=== PATIENT | male | born 1990 | race Hispanic/Latino ===

== ENCOUNTER 2017-04-21 10:25 | Day surgery (SDC) | payer OTHER ==
[2017-04-20 10:55] VITALS: BMI 35.9
[2017-04-21] MEDS ORDERED: Oxymetazoline HCl 0.05% ( 15 ML ) ONE ×2 (10:42→12:31)
[2017-04-21] MEDS ORDERED: Ondansetron HCl/PF 4 MG/2 ML Vial ONE ×3 (12:25→14:25)
[2017-04-21] MEDS ORDERED: Fentanyl 250 MCG/5 ML VIAL ONE ×2 (12:25→13:21)
[2017-04-21] MEDS ORDERED: Lidocaine 1% w/Epinephrine 1:200K 30 ML VIAL ONE (12:31)
[2017-04-21] MEDS ORDERED: Bacitracin Zinc Ointment 30 gm TUBE ONE (12:31)
[2017-04-21] MEDS ORDERED: Succinylcholine Chloride 20 MG/ML 10 ml SYRINGE FS ONE (14:25)
[2017-04-21] MEDS ORDERED: Dexamethasone 20 MG/5 ML VIAL ONE (14:25)
[2017-04-21] MEDS ORDERED: PROPOFOL 200 MG/20 ML VIAL ONE (14:25)
[2017-04-21] MEDS ORDERED: Lidocaine 1% PF 5 ML VIAL ONE (14:25)
[2017-04-21] MEDS ORDERED: Morphine 2 MG/ML SYRINGE ONE (14:48)
[2017-04-21] MEDS ORDERED: Hydrocodone-Acetamin 15 ML UDCUP ONE (14:53)
--- NOTE | 2017-04-21 19:07 | OP ---
DATE OF PROCEDURE: 04/21/2017 PREOPERATIVE DIAGNOSES: 1. Chronic adenotonsillitis. 2. Adenotonsillar hypertrophy. 3. Nasal septal deviation. 4. Bilateral inferior turbinate hypertrophy. 5. Nasal obstruction. POSTOPERATIVE DIAGNOSES: 1. Chronic adenotonsillitis. 2. Adenotonsillar hypertrophy. 3. Nasal septal deviation. 4. Bilateral inferior turbinate hypertrophy. 5. Nasal obstruction. PROCEDURES: 1. Nasal septoplasty. 2. Bilateral inferior turbinate submucous resection. 3. Tonsillectomy and adenoidectomy. SURGEON: Matheus Alexander M.D. ESTIMATED BLOOD LOSS: 20 mL. COMPLICATIONS: None. ANESTHESIA: GETA. PROCEDURE IN DETAIL: Patient was taken to the operating room and placed supine on the table. Genera l endotracheal anesthesia was obtained by the Anesthesia staff. Tube was secured in the left lower l ip. Patient was then placed in the beach chair position, and Afrin pledgets were placed in the nasal cavity. Injections of 1% lidocaine with 1:100,000 epinephrine were made into the nasal septum as we ll as the inferior turbinates. Patient was then prepped and draped in standard surgical fashion for nasal surgery. Following this, the Afrin pledgets were removed. A Sipsey incision was made on the left nasal septum. Submucoperichondrial dissection was performed. The deviated portions of the sept um included portions of the cartilage and the bony septum. These isolated areas were removed using t hree cutting rongeurs. There was noted to be a large dorsal and caudal strut, left intact for suppor t of the nose. The mucoperichondrial flaps were then reapproximated using a 4-0 gut stitch. Any str aight pieces of cartilage were crushed prior to this and placed between the mucoperichondrial flaps. Following this, the inferior turbinates were then punctured with a submucosal coblation wand, and foley bmucosal coblations were performed of multiple areas of the inferior portion of the anterior inferior turbinate. Please note that the submucosal microdebrider was used to submucosally resect the anteri or inferior portions of the inferior turbinates and then they were laterally outfractured. PROCEDURE #2: Tonsillectomy and adenoidectomy. PROCEDURE IN DETAIL: After consent was obtained, the patient was identified, brought to the operatin g room, and placed on the operating table in the supine position. General endotracheal anesthesia an d intravenous access was obtained and we proceeded with positioning the patient for oropharyngeal brenda jey. Oropharyngeal exposure was obtained with a Frank-Pedro Pablo mouth gag after a head drape was placed and secured with a towel clip. The Frank-Pedro Pablo mouth gag was then suspended from the Hooks tray and palatal elevation was achieved with a red rubber catheter. The right tonsil was addressed first. We used a curved Allis to grasp the tonsil and retract it medially as an anterior pillar incision was m lit. The retrotonsillar fascial plane was then established and blunt dissection was performed with t he suction cautery. Blood vessels were anticipated, identified, and cauterized as they were encounte red. Ultimately, dissection was carried to the posterior tonsillar pillar mucosa which was incised h emostatically, as well as the base of tongue connection. The tonsil was then passed off as a specime n and bleeding points within the tonsillar bed were cauterized under direct visualization. We subseq uently turned our attention to the contralateral side, where using a similar technique, a near identi timo procedure was performed. Again, the tonsil was grasped and retracted medially with a curved Quang s. The retrotonsillar fascial plane was established and while the anterior pillar was retracted medi ally, the hemostatic blunt dissection of the tonsil with a suction cautery was performed with blood v essels anticipated, identified, and cauterized as they were encountered. Again, dissection continued to the base of tongue and posterior tonsillar pillar mucosa which was incised in a hemostatic fashio n. The tonsillar beds were then carefully inspected and bleeding points were identified and cauteriz ed with a suction cautery. After this portion of the procedure, hemostasis was completely obtained. Under direct mirror visualization, we visualized the adenoid pad. Under direct mirror visualization , we removed the bulk of the adenoid tissue with the adenoid curette. We then packed the nasopharynx for an appropriate period of time with Ross-Synephrine saturated tonsillar sponges. After a period o f observation, we removed the pack. Under indirect mirror visualization, we obtained hemostasis and vaporization of residual adenoid tissue with electrocautery. The patient's oral cavity was copiously irrigated with iced saline and subsequently suctioned. After completion of the procedure, the nasal cavity and oropharynx were irrigated and suctioned as were the gastric contents. The patient was th en awakened and transferred to the recovery room where the patient remained in stable condition prior to discharge to Day Stay. The patient tolerated the procedures well.
== END 2017-04-21 16:30 | disposition home or self-care (01) ==
LOC: SDC 10:25
PROVIDERS: ATTEND Otolaryngology Plastic Surgery within the Head & Neck
DX: J35.03 Chronic tonsillitis and adenoiditis (principal); J34.2 Deviated nasal septum; J34.3 Hypertrophy of nasal turbinates; Z87.891 Personal history of nicotine dependence
CPT/HCPCS: 88304; 96374; J0131; J1100; J2001; J2270; J2405; J2704; J3010